=== PATIENT | female | born 1975 | race Asian ===

== ENCOUNTER → 2017-05-27 | Outpatient (CLI) | payer OTHER ==
[~2017-05-27] MED LIST: CIPR-249 PO; FLOM5CAP PO; IBUP-1114 PO; PERC5TAB12 PO
[2017-05-27 17:43] LABS: INR 0.88
[2017-05-27 17:57] LABS: MEAN CORPUSCULAR HEMOGLOBIN 30.3 pg (27.0-33.0); MEAN CORPUSCULAR VOLUME 91.7 fl (80.0-96.0); PLATELET COUNT, AUTOMATED 404 10^3/uL (150-450); RED CELL DISTRIBUTION WIDTH 12.9 % (11.5-14.5)
[2017-05-27 18:17] LABS: ANION GAP 5 MEQ/L (8-16); BLOOD UREA NITROGEN 14 MG/DL (7-18); CALCIUM LEVEL 9.2 MG/DL (8.5-10.1); CARBON DIOXIDE LEVEL 30 MEQ/L (21-32); CHLORIDE LEVEL 109 MEQ/L (98-107); CREATININE FOR GFR 0.72 MG/DL (0.55-1.02); GLOMERULAR FILTRATION RATE > 60.0 (>58); GLUCOSE, FASTING 115 MG/DL (70-105); SODIUM LEVEL 144 MEQ/L (136-145)
== END ==
LOC: M SMT 14:40
PROVIDERS: ATTEND Nurse Practitioner Family
DX: N20.1 Calculus of ureter (principal)

== ENCOUNTER 2017-05-30 07:23 | Day surgery (SDC) | payer OTHER ==
[~2017-05-30] VITALS: Ht 144.8 cm; Wt 52.2 kg
[~2017-05-30 07:23] MED LIST changes: -IBUP-1114 PO
[2017-05-30] MEDS ORDERED: CLINDAMYCIN 900 MG in APPROPRIATE DILUENT 1 EA IV ONE (07:30)
[2017-05-30] MEDS ORDERED: IBUP-1114 PO (08:11)
[2017-05-30] MEDS ORDERED: CONRAY-60 60% 50ML VIAL (Q9961) As Ordered ONE (08:35)
[2017-05-30] MEDS ORDERED: LR 1,000 ML IV ONE (08:45)
[2017-05-30 08:55] LABS: CONTROL LINE UCG INT CTR LINE PRESENT
[2017-05-30] MEDS ORDERED: fentaNYL 100 MCG/2 ML INJECTION (J3010) As Ordered ONE (09:05)
[2017-05-30] MEDS ORDERED: MIDAZOLAM INJ 2 MG/2 ML VIAL (J2250) As Ordered ONE (09:05)
[2017-05-30] MEDS ORDERED: PROPOFOL 200 MG/20 ML VIAL As Ordered ONE (09:13)
[2017-05-30] MEDS ORDERED: METOCLOPRAMIDE INJ 10MG/2ML VIAL (J2765) As Ordered ONE (09:13)
[2017-05-30] MEDS ORDERED: LIDOCAINE 2% INJ 100 MG/5 ML SDV (FOR ANES.) As Ordered ONE (09:13)
[2017-05-30] MEDS ORDERED: ONDANSETRON 4MG/2ML VIAL (J2405) As Ordered ONE (09:13)
[2017-05-30] MEDS ORDERED: PHENYLephrine HCL 500 MCG/5 ML (100MCG/ML) SYRINGE (J2370) As Ordered ONE (09:23)
[2017-05-30] MEDS ORDERED: ePHEDrine SULFATE 25 MG/5 ML(5MG/ML) SYRINGE As Ordered ONE (09:34)
--- NOTE | 2017-05-30 10:10 | RO ---
DATE OF PROCEDURE: 05/30/2017 PREPROCEDURE DIAGNOSIS: Left ureteral stone with hydronephrosis. POSTPROCEDURE DIAGNOSIS: Left ureteral stone with hydronephrosis. PROCEDURE: Cystoscopy, left ureteroscopy with laser lithotripsy and basket extraction of stones, left retrograde pyelogram with intraoperative interpretation of images, left ureteral stent placement. SURGEON: Dr. Obdulio Burciaga LOADER TECHNICIAN: None. ANESTHESIA: General. OPERATIVE INDICATIONS: This is a 41-year-old female who was found to have an obstructing 8 mm left ureteral stone. She was brought to the operating room today for treatment. DESCRIPTION OF PROCEDURE: The patient was brought to the operating room where general anesthesia was induced. Prophylactic antibiotics were infused. She was placed in dorsal lithotomy position and prepped and draped in the usual sterile fashion. A rigid cystoscope was inserted into the urethral meatus and advanced to the bladder. Once within the bladder, a guidewire was advanced up the left collecting system. I then went up the left collecting system with a short semi rigid ureteroscope and within the distal ureter an 8 mm stone was seen impacted. The stone was then fragmented in several small pieces using a 200 micro laser fiber and then all the pieces were removed with a basket. Once done, I examined the more proximal ureter and of note it was noted to be severely hydronephrotic. No additional stones were seen. A retrograde pyelogram was performed notable for severe left hydroureteronephrosis and no extravasation. At this poin, I withdrew the ureteroscope and utilized the previously placed wire to advance a 6 Macedonian x 22-32 cm JJ ureteral stent up into the left collecting system. The wire was then removed and there were adequate curls of the stent in the left renal pelvis and in the bladder. The bladder was emptied of all fluid and this marked the conclusion of the procedure. The patient was then taken out of the dorsal lithotomy position, awakened from anesthesia and transported to the recovery room in stable condition. Estimated blood loss: 0 mL. Complications: None. Specimen: Kidney stone fragments. Plan: The patient will followup in the clinic in a few weeks for stent removal. I am going to leave her stent in for at least 3-4 weeks given the amount of scarring within the distal ureter.
[2017-05-30] MEDS ORDERED: PERCOCET 5MG/325MG TAB PO PRN ×3 (10:15→10:30)
[2017-05-30] MEDS ORDERED: LR 1,000 ML IV SCH (10:15)
[2017-05-30] MEDS ORDERED: fentaNYL 100 MCG/2 ML INJECTION (J3010) IV PRN (10:15)
[2017-05-30] MEDS ORDERED: MEPERIDINE INJ 25 MG/ML VIAL (J2175) IV PRN (10:15)
[2017-05-30] MEDS ORDERED: ONDANSETRON 4MG/2ML VIAL (J2405) IV PRN (10:15)
[2017-05-30] MEDS ORDERED: METOCLOPRAMIDE INJ 10MG/2ML VIAL (J2765) IV PRN (10:15)
--- NOTE | 2017-05-30 10:19 | REP ---
C-ARM VIEWS DURING RETROGRADE PYELOGRAM AND URETERAL STENT PLACEMENT: Two C-arm views performed. Contrast partially opacified dilated left ureter and pelvicalyceal system. Left ureteral stent is placed with the proximal end coiled in the left renal pelvis and the distal end coiled in the region of the urinary bladder. 15 seconds of fluoroscopy time utilized. Signed by Elder Villalta MD 05/30/2017 12:43 P
[2017-05-30] MEDS ORDERED: oxyBUTYnin 5 MG TAB PO PRN (10:30)
[2017-05-30 11:00] VITALS: BP 116/73
== END 2017-05-30 11:29 | disposition home or self-care (01) ==
LOC: M SDC 07:23
PROVIDERS: ATTEND Urology
DX: N13.2 Hydronephrosis with renal and ureteral calculous obstruction (principal); Z88.0 Allergy status to penicillin
CPT/HCPCS: 52356; 74420; 82360; 84703; 88300; C1769; C2617

== ENCOUNTER → 2017-07-01 | Outpatient (REF) | payer OTHER ==
[~2017-07-01] MED LIST changes: +ACET1TAB17 PO; +BACT800T5 PO; +IBUP-1114 PO; +KETO10TAB PO; +OXYC1TAB23 PO
== END ==
LOC: M SMT 17:02
PROVIDERS: ATTEND Urology
DX: R50.9 Fever, unspecified (principal)

== ENCOUNTER → 2017-07-02 | Outpatient (REF) | payer OTHER | LOC: M SFHCLERA 12:36 | PROVIDERS: ATTEND Nurse Practitioner Family | DX: R50.9 Fever, unspecified (principal) ==

== ENCOUNTER 2017-07-03 20:45 | Inpatient (IN) | payer OTHER ==
[~2017-07-03] VITALS: Ht 139.7 cm; Wt 51.2 kg
[~2017-07-03 20:45] MED LIST changes: -ACET1TAB17 PO; -BACT800T5 PO; -KETO10TAB PO; -OXYC1TAB23 PO
[2017-07-03] MEDS ORDERED: KETO10TAB PO (20:55)
[2017-07-03] MEDS ORDERED: ACET1TAB17 PO (20:55)
[2017-07-03] MEDS ORDERED: ACETAMINOPHEN 325 MG TAB PO ONE (22:00)
[2017-07-03 22:26] LABS: SQUAM EPITHELIAL CELL UR AURFX 3 /HPF (0-6)
[2017-07-03] MEDS ORDERED: NS 1,000 ML IV ONE (22:30)
[2017-07-03] MEDS ORDERED: ONDANSETRON 4MG/2ML VIAL (J2405) IV ONE (22:30)
[2017-07-03] MEDS ORDERED: KETOROLAC 30 MG/ML VIAL (J1885) IV ONE (22:30)
[2017-07-03 22:53] LABS: BASO % 0.3 % (0.0-1.0); EOS % 0.3 % (0.0-3.0); IMMATURE GRANULOCYTE % 0.3 % (0-0); LYMPH % 9.1 % (24.0-44.0); MEAN CORPUSCULAR HEMOGLOBIN 29.9 pg (27.0-33.0); MEAN CORPUSCULAR HGB CONC 33.6 g/dl (32.0-36.5); MEAN CORPUSCULAR VOLUME 88.8 fl (80.0-96.0); MONO # 0.7 10^3/uL (0.0-0.8); MONO % 6.9 % (0.0-5.0); NEUTROPHILS # 8.9 10^3/uL (1.8-7.7); NEUTROPHILS % 83.1 % (36.0-66.0); PLATELET COUNT, AUTOMATED 324 10^3/uL (150-450); RED CELL DISTRIBUTION WIDTH 12.7 % (11.5-14.5); WHITE BLOOD COUNT 10.7 10^3/uL (4.0-10.0)
[2017-07-03 22:55] LABS: CONTROL LINE UCG INT CTR LINE PRESENT
[2017-07-03 23:15] LABS: ALBUMIN 3.3 GM/DL (3.2-5.2); ALBUMIN/GLOBULIN RATIO 0.75 (1.00-1.93); ALKALINE PHOSPHATASE 131 U/L (45-117); ALT/SGPT 89 U/L (12-78); ANION GAP 10 MEQ/L (8-16); AST/SGOT 40 U/L (7-37); BILIRUBIN,DIRECT 0.2 MG/DL (0.0-0.2); BILIRUBIN,TOTAL 0.6 MG/DL (0.2-1.0); BLOOD UREA NITROGEN 8 MG/DL (7-18); CALCIUM LEVEL 8.4 MG/DL (8.5-10.1); CARBON DIOXIDE LEVEL 26 MEQ/L (21-32); CHLORIDE LEVEL 103 MEQ/L (98-107); CREATININE FOR GFR 0.76 MG/DL (0.55-1.02); GLOMERULAR FILTRATION RATE > 60.0 (>58); GLUCOSE, FASTING 98 MG/DL (70-105); POTASSIUM SERUM 3.1 MEQ/L (3.5-5.1); SODIUM LEVEL 139 MEQ/L (136-145); TOTAL PROTEIN 7.7 GM/DL (6.4-8.2)
--- NOTE | 2017-07-03 23:30 | REPUSA ---
CT of the abdomen and pelvis without contrast Clinical statement: Pain. Technique: Multiple axial CT images were obtained from the base of the lungs to the floor of the pelv is utilizing 5 mm axial slices without administration of contrast. Coronal and sagittal reconstructio ns were also obtained. Comparison: 05/23/2017. Findings: Chest: The visualized lung bases are clear. Abdomen: The kidneys are normal in size bilaterally. There is mild left-sided hydronephrosis and hydr oureter. This is decrease in severity since the prior study. Tiny nonobstructing stones are seen bila terally. Increased density of the renal medullary pyramids are noted. The liver, spleen, pancreas, ga llbladder and adrenal glands are unremarkable. The aorta demonstrates normal caliber and contour. The re is no abdominal lymphadenopathy or ascites. Pelvis: The bowel is unremarkable, with no obstructive or inflammatory changes. The appendix is je l. The urinary bladder is within normal limits. There is no pelvic lymphadenopathy or ascites. The ot her pelvic structures appear unremarkable. Bones: There are no suspicious osseous abnormalities seen. Impression: 1. Mild left-sided hydronephrosis and hydroureter. The obstructing stone in the distal left ureter se en on the prior study has resolved however. Tiny nonobstructing stones are seen in the kidneys bilate rally at this time. 2. Bilateral medullary nephrocalcinosis. 3. No obstructive or inflammatory bowel changes.
[2017-07-04] MEDS: NS 1,000 ML IV SCH ×3 (00:45→20:35)
[2017-07-04] MEDS ORDERED: MORPHINE 4 MG/ML 1ML SYRINGE IV ONE (00:45)
[2017-07-04] MEDS ORDERED: CIPR-249 PO (00:55)
[2017-07-04] MEDS ORDERED: OXYC1TAB23 PO (00:55)
[2017-07-04] MEDS ORDERED: ONDANSETRON 4MG/2ML VIAL (J2405) IV PRN (01:00)
[2017-07-04] MEDS ORDERED: MORPHINE 2 MG/ML 1ML SYRINGE IV PRN (01:00)
[2017-07-04] MEDS ORDERED: ACETAMINOPHEN TAB 650MG DOSE (2X325MG) PO PRN (01:00)
--- NOTE | 2017-07-04 01:03 | SMCUROLCON ---
Urology Consultation General Date of Consultation 07/04/17 Reason For Consultation This patient is seen for fevers to 103 and flank pain. History of Present Illness The patient is a [41]-year-old [female] with a past medical history for [recent treatment for kidney stone with stenting and stent removal 1 week ago. She has had pain since the stent has come out and started to have fever yesterday. Went to urgent care where eval of urine was negative. She has been on cipro. Despite that she has had fevers >101 and flank pain. The pain is on the left side. Ct scan reviewed and negative for hydro on the left. Has an upper pole stone on the right, no hydro]. Past Medical History Medical History as above Surgical Hstory as above Family History Family History Non contributory Social History Social History non contributory Alcohol: Denies Drugs: denies Medications Current Medications Current Medications Acetaminophen (Tylenol Tab) 650 mg Q4HP PRN PO MILD PAIN OR FEVER; Start 07/04 at 01:00; Stop 08/03/17 at 00:59; Status UNV Ceftriaxone Sodium 1 gm/IV Miscellaneous Supplies 10 ml @ 20 mls/hr Q24H IV ; Start 07/04/17 at 01:00; Stop 07/11/17 at 00:59; Status UNV Heparin Sodium (Porcine) (Heparin) 5,000 units Q8H SC ; Start 07/04/17 at 01:00 ; Stop 07/09/17 at 00:59; Status UNV Morphine Sulfate (Morphine Sulfate Inj) 2 mg Q2HP PRN IV SEVERE PAIN (PS 8-10) ; Start 07/04/17 at 01:00; Stop 07/11/17 at 00:59; Status UNV Ondansetron HCl (ZOFRAN INJection) 4 mg Q6HP PRN IV NAUSEA OR VOMITING; Start 07/04/17 at 01:00; Stop 08/03/17 at 00:59; Status UNV Oxycodone/ Acetaminophen (Percocet 5mg/ 325mg Tablet) 1 tab Q4HP PRN PO MODERATE PAIN (PS 5-7); Start 07/04/17 at 01:00; Stop 07/11/17 at 00:59; Status UNV Sodium Chloride 1,000 ml @ 100 mls/hr Q10H IV ; Start 07/04/17 at 00:47; Stop 08/03/17 at 00:46; Status UNV Allergies Allergies: Coded Allergies: Penicillins (Verified Allergy, Intermediate, lip swelling, 07/03/17) Review of Systems General: Reports: Normal Appetite, Denies: ROS Unobtainable, Chills, Night Sweats, Fatigue, Malaise, Other Symptoms Constitutional: Reports: Fever Eyes: Denies: Pain, Vision change, Conjunctivae inflammation, Eyelid inflammation, Redness, Other ENT: Denies: Head Aches, Ear Pain, Dysphagia, Sinus Congestion, Post Nasal Drip , Sore Throat, Epistaxis, Other Symptoms Skin: Denies: Rash, Lesions, Jaundice, Bruising, Itching, Dry, Breakdown, Nail Changes, Other Pulmonary: Denies: Dyspnea, Cough, Pleuritic Chest Pain, Other Symptoms Gastrointestinal: Denies: Nausea, Vomiting, Abdominal Pain, Diarrhea, Constipation, Melena, Hematochezia, Other Symptoms Genitourinary: Denies: Dysuria, Frequency, Incontinence, Hematuria, Retention, Other Symptoms Physical Examination General Exam: Cooperative EYE EXAM: No: PERRLA, Conjunctiva & lids normal, EOMI, Sclera icteric, Ptosis, Other Eye Symptoms Chest Exam: No: Clear to auscultation, Normal air movement, Rales, Rhonchi, Wheezing, Diminished, Other Abdomen Exam: No: Normal Bowel Sounds, BS Hyperactive, BS Hypoactive, Soft, Tenderness, Hepatospenomegaly, Mass, Hernia, Other Extremity Exam: No: Clubbing, Cyanosis, Edema, Normal Pulses, Tenderness, Swelling, Other Skin Exam: No: Nl turgor and temperature, Rash, Breakdown, Lesion, Pruritus, Other skin issue Neuro Exam: No: Normal Gait, Normal Speech, Strength at 5/5 X4 ext, Normal Tone , Sensation Intact, Cranial Nerves 3-12 NL, Reflexes 2+, Other Vital Signs/I&O Vital Signs Date Time Temp Pulse Resp B/P (MAP) Pulse Ox O2 Delivery O2 Flow Rate FiO2 07/04/17 00:32 99.3 99 16 120/72 (88) 99 07/03/17 22:50 Room Air Laboratory Data 24H Labs Laboratory Tests 2 07/03/17 21:55: Urine Color YELLOW, Urine Appearance CLEAR, Urine pH 8.0, Urine Specific [place] 1.010, Urine Protein NEGATIVE, Urine Glucose (UA) NEGATIVE, Urine Ketones 1+H, Urine Blood 2+H, Urine Nitrite NEGATIVE, Urine Bilirubin NEGATIVE, Urine Urobilinogen 0.2, Urine Leukocyte Esterase NEGATIVE, Urine WBC (Auto) 3, Urine RBC (Auto) 26H, Urine Hyaline Casts (Auto) 0, Urine Bacteria (Auto) 1+H, Urine Squamous Epithelial Cells 3, Urine Sperm (Auto) 07/03/17 22:41: Immature Granulocyte % (Auto) 0.3H, White Blood Count 10.7H, Red Blood Count 4.02, Hemoglobin 12.0, Hematocrit 35.7L, Mean Corpuscular Volume 88.8, Mean Corpuscular Hemoglobin 29.9, Mean Corpuscular Hemoglobin Concent 33.6, Red Cell Distribution Width 12.7, Platelet Count 324, Neutrophils (%) (Auto) 83.1H, Lymphocytes (%) (Auto) 9.1L, Monocytes (%) (Auto) 6.9H, Eosinophils (%) (Auto) 0.3, Basophils (%) (Auto) 0.3, Neutrophils # (Auto) 8.9H, Lymphocytes # (Auto) 1.0L, Monocytes # (Auto) 0.7, Eosinophils # (Auto) 0.0, Basophils # (Auto) 0.0, Immature Granulocyte # (Auto) 0.0, Nucleated Red Blood Cells % (auto) 0.0, Urine Test NEGATIVE, Anion Gap 10, Glomerular Filtration Rate > 60.0, Lactic Acid Level 1.1, Calcium Level 8.4L, Aspartate Amino Transf (AST/SGOT) 40H , Alanine Aminotransferase (ALT/SGPT) 89H, Alkaline Phosphatase 131H, Total Bilirubin 0.6, Direct Bilirubin 0.2, Total Protein 7.7, Albumin 3.3, Albumin/ Globulin Ratio 0.75L CBC/BMP Laboratory Tests 07/03/17 22:41 Red Blood Count 4.02, Mean Corpuscular Volume 88.8, Mean Corpuscular Hemoglobin 29.9, Mean Corpuscular Hemoglobin Concent 33.6, Red Cell Distribution Width 12.7 , Neutrophils (%) (Auto) 83.1 H, Lymphocytes (%) (Auto) 9.1 L, Monocytes (%) ( Auto) 6.9 H, Eosinophils (%) (Auto) 0.3, Basophils (%) (Auto) 0.3, Neutrophils # (Auto) 8.9 H, Lymphocytes # (Auto) 1.0 L, Monocytes # (Auto) 0.7, Eosinophils # (Auto) 0.0, Basophils # (Auto) 0.0 Microbiology Microbiology 07/04/17 Blood Culture, Received Pending 07/03/17 Blood Culture, Received Pending 07/03/17 Urine Culture, Received Pending Assessment fevers, flank pain left, right non obstructed stone upper pole, history of ureteral stent Plan Admit for IV fluid and IV abx. No need for urgent stenting at present. Will follow Time Spent on Consult: Time Spent / Consult (Minutes): 45 NELDA MAX MD Jul 04, 2017 01:03
[2017-07-04 01:30] VITALS: BP 128/73
[2017-07-04] MEDS: CEFTRIAXONE SOD 1 GM in APPROPRIATE DILUENT 1 EA IV SCH (02:40)
[2017-07-04] MEDS: PERCOCET 5MG/325MG TAB PO PRN ×2 (02:44→14:13)
[2017-07-04] MEDS: HEPARIN SOD (PORCINE) 5000 UNITS/ML VIAL SC SCH ×3 (06:21→21:46)
[2017-07-04 06:56] LABS: BASO % 0.3 % (0.0-1.0); EOS # 0.1 10^3/uL (0.0-0.50); EOS % 1.3 % (0.0-3.0); IMMATURE GRANULOCYTE % 0.3 % (0-0); LYMPH # 2.1 10^3/uL (1.5-4.5); LYMPH % 28.4 % (24.0-44.0); MEAN CORPUSCULAR HEMOGLOBIN 29.3 pg (27.0-33.0); MEAN CORPUSCULAR HGB CONC 32.8 g/dl (32.0-36.5); MEAN CORPUSCULAR VOLUME 89.2 fl (80.0-96.0); MONO % 13.5 % (0.0-5.0); NEUTROPHILS # 4.2 10^3/uL (1.8-7.7); NEUTROPHILS % 56.2 % (36.0-66.0); PLATELET COUNT, AUTOMATED 276 10^3/uL (150-450); RED CELL DISTRIBUTION WIDTH 12.8 % (11.5-14.5); WHITE BLOOD COUNT 7.5 10^3/uL (4.0-10.0)
--- NOTE | 2017-07-04 07:05 | HPE ---
DATE OF ADMISSION: 07/04/2017 PRIMARY CARE PROVIDER: None. UROLOGIST: Dr. Burciaga. ATTENDING PHYSICIAN: Dr. Mcmillan. CHIEF COMPLAINT: Fever and persistent left flank pain. HISTORY OF PRESENT ILLNESS: The patient is a 41-year-old female without significant past medical history who presented to the emergency room (ER) for fever and persistent left flank pain. The history is provided by herself. She states back to 05/28/2017 she developed sudden onset of left flank pain and she went to the urgent care and then she was referred here in the ER and a CT scan demonstrated she had some obstructed ureteral stone in the left side. She was consulted with the urologist and the stone was removed and a left ureteral stent was inserted. She followed with urology in the office back to 06/28/2017 and the stent was removed. She was given one dose Cipro for infection prophylaxis. She was told to contact the doctor's office she had fever or pain. Subsequent to this, she was fine; however, starting from 06/30/2017, she developed fever and pain again. The highest temperature was 105. Her pain is located in the left flank, which was persistent. The worst pain is about an 8 over 10. She went back to see the urologist who prescribed oral Cipro for possible urinary tract infection. Due to persistent fever and pain, she decided to come to the ER for further evaluation. In the ER, she underwent a CT of abdomen and pelvis again, which demonstrated the previous left renal stone was gone, but she has mild hydronephrosis and hydroureter in the left side and also no obstructive kidney stone. The urologist was consulted in the ER. The medicine service was called for admission. REVIEW OF SYSTEMS: Positive fever. Positive chills. No blurred vision. No shortness of breath. No chest pain. No nausea. No vomiting. No abdominal pain, but left flank pain. No dysuria. No diarrhea. No tingling, numbness or weakness in arms or lower extremities. All other systems reviewed were negative. PAST MEDICAL HISTORY: Recent left distal ureter stone. PAST SURGICAL HISTORY: Ureteral stone removal plus left ureteral stenting. ALLERGIES: No known drug allergies. SOCIAL HISTORY: No tobacco use. No alcohol abuse. No illicit drug abuse. She is . She is full code. FAMILY HISTORY: No history of kidney stones, coronary artery disease or diabetes in the family. MEDICATIONS: Reviewed. PHYSICAL EXAMINATION: Temperature 102.2. Heart rate 116. Respiratory rate 16. Blood pressure 140/87. Oxygen saturation 100% in room air. GENERAL: She is awak, alert and oriented times three. She is in no acute distress. HEENT: Atraumatic. Pupils equal round and react to light. No jaundice. Extraocular muscles intact. Ears, nose and throat normal. Moist mucus, not dry. NECK: No jugular venous distention (JVD). No bruits. LUNGS: Clear. No wheezing. No crackles. HEART: S1, S2, regular. No murmur. ABDOMEN: Soft. Bowel sounds positive. Nontender. LOWER EXTREMITIES: No edema in bilateral lower extremities. SKIN: No rash. NEUROLOGIC: Nonfocal. PSYCHOLOGIC: No acute psychosis. DIAGNOSTICS AND LABS: CBC and differential with WBC 10.7, hemoglobin/hematocrit (H/H) 12/36, and platelets of 324. Sodium 139, potassium 3.2, BUN 8, creatinine 0.7, glucose 98. CT of abdomen and pelvis reviewed. IMPRESSIONS: 1. Sepsis and possible urinary tract infection. 2. Bilateral non obstructing kidney stones. 3. Hypokalemia. PLAN: The patient will be admitted to medical-surgical floor. Will treat her with IV ceftriaxone for possible urinary tract infection. Urology will be consulted. On her urine culture from urgent care on 07/02/2017, there is no bacterial growth. We need to follow repeat blood culture and urine cultures. [facility] MEDICAL CENTERJuliane
[2017-07-04 07:32] LABS: ALBUMIN 2.6 GM/DL (3.2-5.2); ALBUMIN/GLOBULIN RATIO 0.81 (1.00-1.93); ALKALINE PHOSPHATASE 114 U/L (45-117); ALT/SGPT 66 U/L (12-78); ANION GAP 9 MEQ/L (8-16); AST/SGOT 26 U/L (7-37); BILIRUBIN,TOTAL 0.3 MG/DL (0.2-1.0); BLOOD UREA NITROGEN 10 MG/DL (7-18); CALCIUM LEVEL 7.6 MG/DL (8.5-10.1); CARBON DIOXIDE LEVEL 26 MEQ/L (21-32); CHLORIDE LEVEL 111 MEQ/L (98-107); CREATININE FOR GFR 0.53 MG/DL (0.55-1.02); GLOMERULAR FILTRATION RATE > 60.0 (>58); GLUCOSE, FASTING 97 MG/DL (70-105); POTASSIUM SERUM 3.1 MEQ/L (3.5-5.1); SODIUM LEVEL 146 MEQ/L (136-145); TOTAL PROTEIN 5.8 GM/DL (6.4-8.2)
[2017-07-04] MEDS ORDERED: POTASSIUM CHLORIDE 10 MEQ SR TABLET PO ONE (09:00)
[2017-07-04 09:30] VITALS: BP 126/84
[2017-07-04] MEDS ORDERED: MOM 30ML SUSPENSION UDC PO PRN (13:00)
[2017-07-04] MEDS ORDERED: SENOKOT S TAB PO PRN (13:00)
--- NOTE | 2017-07-04 13:12 | IPNPDOC ---
Assessment/Plan Date Seen The patient was seen on 07/04/17. Patient Summary This is a 41 y/o who is s/p cystoscopy, left ureteroscopy with laser lithotripsy and basket extraction for an impacted stone on 05/30/17 and then stent removal on 06/28/17, admitted to the hospital w/ fevers and flank pain. CT yesterday showed mild left hydroureteronephrosis. This is common due to ureteral edema after stent removal. Her flank pain and fevers are better at this time. Plan/VTE VTE Prophylaxis Ordered?: Yes Plan - continue broad spectrum antibiotics and adjust based on culture results - no urologic intervention required as hydro is mild and patient's pain is improving - if flank pain worsens would recommend repeat US in a day or so to assess for worsening hydronephrosis Subjective Review oF Systems Chief Complaint The patient is a 41-year-old female admitted with a reason for visit of Sepsis, Uti. Events since Last Encounter Patient notes that her flank pain and headache are better this morning. No fevers since admitted to the hospital. Objective Physical Examination General Exam: Alert, Cooperative, No Acute Distress ABDOMEN EXAM: Soft Skin Exam: Nl turgor and temperature Neuro Exam: Normal Speech Psych Exam: Mental status NL, Mood NL Vital Signs/I&O Vital Signs Date Time Temp Pulse Resp B/P (MAP) Pulse Ox O2 Delivery O2 Flow Rate FiO2 07/04/17 09:30 99.0 94 16 126/84 (98) 99 Room Air I&O- Last 24 Hours up to 6 AM 07/05/17 06:00 Intake Total 580 ml Output Total 400 ml Balance 180 ml Laboratory Data Labs 24H Laboratory Tests 2 07/03/17 21:55: Urine Color YELLOW, Urine Appearance CLEAR, Urine pH 8.0, Urine Specific [place] 1.010, Urine Protein NEGATIVE, Urine Glucose (UA) NEGATIVE, Urine Ketones 1+H, Urine Blood 2+H, Urine Nitrite NEGATIVE, Urine Bilirubin NEGATIVE, Urine Urobilinogen 0.2, Urine Leukocyte Esterase NEGATIVE, Urine WBC (Auto) 3, Urine RBC (Auto) 26H, Urine Hyaline Casts (Auto) 0, Urine Bacteria (Auto) 1+H, Urine Squamous Epithelial Cells 3, Urine Sperm (Auto) 07/03/17 22:41: Immature Granulocyte % (Auto) 0.3H, White Blood Count 10.7H, Red Blood Count 4.02, Hemoglobin 12.0, Hematocrit 35.7L, Mean Corpuscular Volume 88.8, Mean Corpuscular Hemoglobin 29.9, Mean Corpuscular Hemoglobin Concent 33.6, Red Cell Distribution Width 12.7, Platelet Count 324, Neutrophils (%) (Auto) 83.1H, Lymphocytes (%) (Auto) 9.1L, Monocytes (%) (Auto) 6.9H, Eosinophils (%) (Auto) 0.3, Basophils (%) (Auto) 0.3, Neutrophils # (Auto) 8.9H, Lymphocytes # (Auto) 1.0L, Monocytes # (Auto) 0.7, Eosinophils # (Auto) 0.0, Basophils # (Auto) 0.0, Immature Granulocyte # (Auto) 0.0, Nucleated Red Blood Cells % (auto) 0.0, Urine Test NEGATIVE, Anion Gap 10, Glomerular Filtration Rate > 60.0, Lactic Acid Level 1.1, Calcium Level 8.4L, Aspartate Amino Transf (AST/SGOT) 40H , Alanine Aminotransferase (ALT/SGPT) 89H, Alkaline Phosphatase 131H, Total Bilirubin 0.6, Direct Bilirubin 0.2, Total Protein 7.7, Albumin 3.3, Albumin/ Globulin Ratio 0.75L 07/04/17 06:32: Immature Granulocyte % (Auto) 0.3H, White Blood Count 7.5, Red Blood Count 3.69L , Hemoglobin 10.8L, Hematocrit 32.9L, Mean Corpuscular Volume 89.2, Mean Corpuscular Hemoglobin 29.3, Mean Corpuscular Hemoglobin Concent 32.8, Red Cell Distribution Width 12.8, Platelet Count 276, Neutrophils (%) (Auto) 56.2, Lymphocytes (%) (Auto) 28.4, Monocytes (%) (Auto) 13.5H, Eosinophils (%) (Auto) 1.3, Basophils (%) (Auto) 0.3, Neutrophils # (Auto) 4.2, Lymphocytes # (Auto) 2.1, Monocytes # (Auto) 1.0H, Eosinophils # (Auto) 0.1, Basophils # (Auto) 0.0, Immature Granulocyte # (Auto) 0.0, Nucleated Red Blood Cells % (auto) 0.0, Anion Gap 9, Glomerular Filtration Rate > 60.0, Calcium Level 7.6L, Aspartate Amino Transf (AST/SGOT) 26, Alanine Aminotransferase (ALT/SGPT) 66, Alkaline Phosphatase 114, Total Bilirubin 0.3, Total Protein 5.8#L, Albumin 2.6#L, Albumin/Globulin Ratio 0.81L, Blood Urea Nitrogen 10, Creatinine 0.53L, Sodium Level 146#H, Potassium Level 3.1L, Chloride Level 111H, Carbon Dioxide Level 26 , Magnesium Level 2.1 CBC/BMP Laboratory Tests 07/03/17 22:41 Red Blood Count 4.02, Mean Corpuscular Volume 88.8, Mean Corpuscular Hemoglobin 29.9, Mean Corpuscular Hemoglobin Concent 33.6, Red Cell Distribution Width 12.7 , Neutrophils (%) (Auto) 83.1 H, Lymphocytes (%) (Auto) 9.1 L, Monocytes (%) ( Auto) 6.9 H, Eosinophils (%) (Auto) 0.3, Basophils (%) (Auto) 0.3, Neutrophils # (Auto) 8.9 H, Lymphocytes # (Auto) 1.0 L, Monocytes # (Auto) 0.7, Eosinophils # (Auto) 0.0, Basophils # (Auto) 0.0 07/04/17 06:32 Red Blood Count 3.69 L, Mean Corpuscular Volume 89.2, Mean Corpuscular Hemoglobin 29.3, Mean Corpuscular Hemoglobin Concent 32.8, Red Cell Distribution Width 12.8, Neutrophils (%) (Auto) 56.2, Lymphocytes (%) (Auto) 28.4, Monocytes (%) (Auto) 13.5 H, Eosinophils (%) (Auto) 1.3, Basophils (%) ( Auto) 0.3, Neutrophils # (Auto) 4.2, Lymphocytes # (Auto) 2.1, Monocytes # (Auto ) 1.0 H, Eosinophils # (Auto) 0.1, Basophils # (Auto) 0.0, Calcium Level 7.6 L, Aspartate Amino Transf (AST/SGOT) 26, Alanine Aminotransferase (ALT/SGPT) 66, Alkaline Phosphatase 114, Total Bilirubin 0.3, Total Protein 5.8 #L, Albumin 2.6 #L Microbiology Microbiology 07/04/17 Blood Culture, Received Pending 07/03/17 Blood Culture, Received Pending 07/03/17 Urine Culture, Received Pending STEPHANIA VELASQUEZ MD Jul 04, 2017 13:12
[2017-07-04] MEDS: FIORICET TAB PO PRN (14:12)
[2017-07-04 16:15] VITALS: BP 116/67
[2017-07-04 20:00] VITALS: BP 144/76
[2017-07-05] VITALS: BP 165/83
[2017-07-05] MEDS: CEFTRIAXONE SOD 1 GM in APPROPRIATE DILUENT 1 EA IV SCH (00:42)
[2017-07-05] MEDS: HEPARIN SOD (PORCINE) 5000 UNITS/ML VIAL SC SCH ×3 (05:33→21:17)
[2017-07-05] MEDS: NS 1,000 ML IV SCH ×2 (05:33→17:40)
[2017-07-05 07:07] LABS: MEAN CORPUSCULAR HEMOGLOBIN 29.5 pg (27.0-33.0); MEAN CORPUSCULAR HGB CONC 33.2 g/dl (32.0-36.5); MEAN CORPUSCULAR VOLUME 88.8 fl (80.0-96.0); PLATELET COUNT, AUTOMATED 312 10^3/uL (150-450); RED CELL DISTRIBUTION WIDTH 12.9 % (11.5-14.5); WHITE BLOOD COUNT 7.1 10^3/uL (4.0-10.0)
[2017-07-05 07:27] LABS: ALBUMIN 2.5 GM/DL (3.2-5.2); ALBUMIN/GLOBULIN RATIO 0.66 (1.00-1.93); ALKALINE PHOSPHATASE 147 U/L (45-117); ALT/SGPT 82 U/L (12-78); ANION GAP 10 MEQ/L (8-16); AST/SGOT 44 U/L (7-37); BILIRUBIN,TOTAL 0.4 MG/DL (0.2-1.0); BLOOD UREA NITROGEN 4 MG/DL (7-18); CALCIUM LEVEL 7.8 MG/DL (8.5-10.1); CARBON DIOXIDE LEVEL 24 MEQ/L (21-32); CHLORIDE LEVEL 110 MEQ/L (98-107); CREATININE FOR GFR 0.47 MG/DL (0.55-1.02); GLOMERULAR FILTRATION RATE > 60.0 (>58); GLUCOSE, FASTING 82 MG/DL (70-105); POTASSIUM SERUM 3.2 MEQ/L (3.5-5.1); SODIUM LEVEL 144 MEQ/L (136-145); TOTAL PROTEIN 6.3 GM/DL (6.4-8.2)
[2017-07-05 08:00] VITALS: BP 146/91
[2017-07-05] MEDS: FIORICET TAB PO PRN ×2 (08:00→20:09)
[2017-07-05 08:15] VITALS: BP 126/70
[2017-07-05 08:17] LABS: MAGNESIUM LEVEL 1.9 MG/DL (1.8-2.4)
[2017-07-05] MEDS ORDERED: POTASSIUM CHLORIDE 10 MEQ SR TABLET PO ONE (08:30)
[2017-07-05] MEDS ORDERED: MAG SULF 1GM/100ML (MAG RUN) 1 GM in APPROPRIATE DILUENT 1 EA IV ONE (09:15)
--- NOTE | 2017-07-05 09:43 | IPN ---
DATE OF EXAMINATION: 07/05/2017 SUBJECTIVE: The patient tells me that overnight, she had a fever, and she had left-sided flank pain associated with it but no dysuria, and it did resolve. She did receive one dose of intravenous (IV) morphine. She otherwise tells me that she is feeling better. Her headache is improving. She did have a bowel movement. OBJECTIVE: VITAL SIGNS: Temperature max 101.6, temperature 98.9. Pulse 74. Respiratory rate 18. Blood pressure (BP) 146/91. Oxygen (O2) saturation 99% on room air. GENERAL: She is a pleasant middle-aged female, sitting up in bed, eating breakfast. She does not appear to be in any acute distress. HEENT: No elevation in central venous pressure (CVP). She has moist mucous membranes. Cranial nerve II-XII are grossly intact. CARDIOVASCULAR EXAMINATION: S1, S2, regular. RESPIRATORY EXAMINATION: Is clear. She has no costovertebral angle (CVA) tenderness bilaterally. ABDOMINAL EXAMINATION: Is fairly benign. EXTREMITIES: There is no clubbing, cyanosis, or edema. LABORATORY STUDIES: WBC 7.1 down from 10.7, hemoglobin 10.3, platelet count 312. Chemistry panel: Sodium 144, potassium 3.2 repleted, chloride 110, bicarbonate 24, BUN 4, creatinine 0.4, AST and ALT are slightly elevated at 44 and 82 respectively, with an alkaline phosphatase elevated at 147. MICROBIOLOGY: Urine culture is pending. Blood cultures are negative thus far. CT scan of the abdomen and pelvis on 07/03/2017 revealed mild left-sided hydronephrosis and hydroureter with the obstructing stone in the distal left ureter seem previously had resolved. Tiny nonobstructing stones were seen in the kidneys bilaterally. Bilateral medullary nephrocalcinosis. No obstructive or inflammatory bowel changes. ASSESSMENT AND PLAN: This is a 41-year-old female with what appears to be pyelonephritis. PROBLEMS: 1. Pyelonephritis. Urology's help has been greatly appreciated. She has been seen by Dr. Burciaga, who is advising to continue with the antibiotics. She is currently on ceftriaxone. Will followup her cultures. There is no obstructing stone. Her flank pain is intermittent and does appear to be improving. Her fever curve is downtrending, although she did have a fever of 101. It was significantly less than 102, which she presented with. She is hemodynamically stable. For the time being, will continue with her current management and to complete a 14-day course. 2. Abnormal liver function test. The etiology remains unclear. May require an ultrasound, as well as a hepatitis panel and an antinuclear antibody (MICHELET). The patient does not have significant past medical history. 3. Anemia. She did have an usual drop in all of her , however. It was unusual for a 41-year-old female to have anemia to this degree, although is asymptomatic. I will evaluate with a peripheral smear and iron studies. 4. Hypokalemia, repleted. 5. Migraine headaches. She is improving with Fioricet. 6. Deep venous thrombosis (DVT) prophylaxis. She is on heparin. DISPOSITION: Pending her clinical improvement, followup urine culture, and resolution of her fever.
[2017-07-05 09:51] LABS: RETIC HEMOGLOBIN EQUIVALENT 28.1 pg (24-36); RETICULOCYTE % 0.8 % (0.5-1.5)
[2017-07-05 09:52] LABS: REASON FOR REVIEW COMPREHENSIVE REVIEW
[2017-07-05 10:02] LABS: FERRITIN 144 NG/ML (8-252); PERCENT SATURATION 41.9 % (13.2-45.0); TOTAL IRON BINDING CAPACITY 203 UG/DL (250-450)
[2017-07-05 10:20] LABS: INR 0.96
[2017-07-05 20:00] VITALS: BP 132/74
[2017-07-06] VITALS: BP 115/78
[2017-07-06] MEDS: CEFTRIAXONE SOD 1 GM in APPROPRIATE DILUENT 1 EA IV SCH (00:32)
[2017-07-06] MEDS: FIORICET TAB PO PRN ×2 (06:03→17:43)
[2017-07-06] MEDS: NS 1,000 ML IV SCH ×2 (06:03→14:41)
[2017-07-06] MEDS: HEPARIN SOD (PORCINE) 5000 UNITS/ML VIAL SC SCH ×3 (06:04→22:00)
[2017-07-06 07:17] LABS: MEAN CORPUSCULAR HEMOGLOBIN 29.6 pg (27.0-33.0); MEAN CORPUSCULAR HGB CONC 33.9 g/dl (32.0-36.5); MEAN CORPUSCULAR VOLUME 87.4 fl (80.0-96.0); PLATELET COUNT, AUTOMATED 362 10^3/uL (150-450); RED CELL DISTRIBUTION WIDTH 12.6 % (11.5-14.5); WHITE BLOOD COUNT 6.2 10^3/uL (4.0-10.0)
[2017-07-06 07:34] LABS: ALBUMIN 2.6 GM/DL (3.2-5.2); ALBUMIN/GLOBULIN RATIO 0.65 (1.00-1.93); ALKALINE PHOSPHATASE 153 U/L (45-117); ALT/SGPT 69 U/L (12-78); ANION GAP 9 MEQ/L (8-16); AST/SGOT 27 U/L (7-37); BILIRUBIN,TOTAL 0.2 MG/DL (0.2-1.0); BLOOD UREA NITROGEN 7 MG/DL (7-18); CALCIUM LEVEL 8.1 MG/DL (8.5-10.1); CARBON DIOXIDE LEVEL 24 MEQ/L (21-32); CHLORIDE LEVEL 110 MEQ/L (98-107); CREATININE FOR GFR 0.46 MG/DL (0.55-1.02); GLOMERULAR FILTRATION RATE > 60.0 (>58); GLUCOSE, FASTING 85 MG/DL (70-105); POTASSIUM SERUM 3.6 MEQ/L (3.5-5.1); SODIUM LEVEL 143 MEQ/L (136-145); TOTAL PROTEIN 6.6 GM/DL (6.4-8.2)
[2017-07-06 08:00] VITALS: BP 108/60
[2017-07-06] MEDS ORDERED: INFLUENZA QUADRIVALENT PF VACCINE 0.5ML SYRINGE (90686) IM ONE (09:00)
[2017-07-06] MEDS ORDERED: ACETAMINOPHEN TAB 650MG DOSE (2X325MG) PO PRN (09:00)
--- NOTE | 2017-07-06 14:41 | REP ---
COMPLETE ABDOMINAL ULTRASOUND: 07/05/2017 CLINICAL HISTORY: Hepatitis. Comparison CT abdomen pelvis without contrast 07/03/2017. FINDINGS: Sonographic evaluation of the abdomen shows the liver homogeneous in echotexture. There is no focal hepatic mass, intrahepatic biliary dilatation nor perihepatic ascites. Gallbladder is partially filled. There are multiple polypoid filling defects. The largest 5 x 5 x 3 mm and wall thickening is up to 2.5 mm. I see no pericholecystic fluid. There is no mobile or shadowing stones. Common duct is 5.8 mm without a filling defect. Pancreas is partially obscured with the pancreatic head obscured by gas in bowel. Remainder of visualized pancreas intact. The spleen measures 8.7 cm in length and is without a focal lesion. There is no adjacent ascites. The right kidney 10.3 x 4.9 x 4. 3 cm and the left kidney 11.6 x 4.7 x 5.3 cm. There is mild pelviectasis bilaterally and bilateral echogenic foci in the pyramids consistent with medullary sponge kidney. Normal aorta has a maximum AP diameter 1.7 cm proximally below the diaphragm with 1.3 cm AP diameter at the level of the renal arteries and 1.3 cm at the bifurcation. The common iliac arteries 8.4 mm right and 8.5 mm left, normal. The bladder grossly intact 12.4 x 9 x 5.9 cm, volume calculated 430 mL IMPRESSION: 1. Liver, visualized portion of pancreas, spleen and common duct grossly intact. 2. Gallbladder with slightly thickened wall with multiple polyps which are not mobile largest 5 x 5 x 3 mm. No calcified shadowing stone evident. 3. Mild pelviectasis both kidneys with normal renal size and with echogenic pyramids on both sides as on CT representing medullary sponge kidney. 4. Bladder with maximum volume of 430 mL. Signed by Kt Quinonez MD 07/06/2017 05:24 P
[2017-07-06 16:00] VITALS: BP 141/85
--- NOTE | 2017-07-06 16:24 | IPNPDOC ---
Date Seen The patient was seen on 07/06/17. Progress Note SUBJECTIVE: Seen at bedside, resting comfortably without complaint. Denies: f/c/r, n/v/d, CP, or abdominal pain. last night had some back pain and recorded low grade temp OBJECTIVE: VITAL SIGNS: see below GENERAL: NAD, A&OX3, pleasant HEENT: PERRLA, throat clear, neck supple no JVD CARDIOVASCULAR EXAMINATION: RRR RESPIRATORY EXAMINATION: CTA Bilaterally BACK: no CVA Tenderness ABDOMEN: soft, NT/ND, normoactive bowel sounds, no rebound tenderness EXTREMITIES: no edema, no calf tenderness. LABORATORY STUDIES: see below MICROBIOLOGY: Urine culture is pending. Blood cultures are negative thus far. ASSESSMENT AND PLAN: This is a 41-year-old female being treated for pyelonephritis, she had a low grade fever last night. PROBLEMS: 1. Pyelonephritis. Hemodynamically stable without signs of sepsis. However, she had a fever last night and I'd like to watch her one more night. Continue current antibiotics, will need to complete 14 days. 2. Abnormal liver function test. The etiology remains unclear. Liver U/S: 1. Liver, visualized portion of pancreas, spleen and common duct grossly intact. 2. Gallbladder with slightly thickened wall with multiple polyps which are not mobile largest 5 x 5 x 3 mm. No calcified shadowing stone evident. 3. Mild pelviectasis both kidneys with normal renal size and with echogenic pyramids on both sides as on CT representing medullary sponge kidney. Hepatitis panel and an antinuclear antibody (MICHELET) are negative. The patient does not have significant past medical history, and doesn't demonstrate an acute need for surgical evaluation. Likely can follow up regarding her GB as outpatient. 3. Anemia. Likely hemodilutional. Recheck CBC in morning. 4. Hypokalemia, repleted. 5. Migraine headaches. Improved. 6. Deep venous thrombosis (DVT) prophylaxis. She is on heparin. DISPOSITION: Likely discharge home tomorrow. VS, I&O, 24H, Fishbone Vital Signs/I&O Vital Signs Date Time Temp Pulse Resp B/P (MAP) Pulse Ox O2 Delivery O2 Flow Rate FiO2 07/06/17 08:00 98.5 70 16 108/60 (76) 99 Room Air I&O- Last 24 Hours up to 6 AM 07/06/17 06:00 Intake Total 940 ml Output Total 3850 ml Balance -2910 ml Laboratory Data 24H LABS Laboratory Tests 2 07/06/17 06:46: Nucleated Red Blood Cells % (auto) 0.0, Anion Gap 9, Glomerular Filtration Rate > 60.0, Blood Urea Nitrogen 7#, Creatinine 0.46L, Sodium Level 143, Potassium Level 3.6, Chloride Level 110H, Carbon Dioxide Level 24, Calcium Level 8.1L, Aspartate Amino Transf (AST/SGOT) 27, Alanine Aminotransferase (ALT/SGPT) 69, Alkaline Phosphatase 153H, Total Bilirubin 0.2, Total Protein 6.6, Albumin 2.6L , Albumin/Globulin Ratio 0.65L CBC/BMP Laboratory Tests 07/06/17 06:46 Red Blood Count 3.58 L, Mean Corpuscular Volume 87.4, Mean Corpuscular Hemoglobin 29.6, Mean Corpuscular Hemoglobin Concent 33.9, Red Cell Distribution Width 12.6, Calcium Level 8.1 L, Aspartate Amino Transf (AST/SGOT) 27, Alanine Aminotransferase (ALT/SGPT) 69, Alkaline Phosphatase 153 H, Total Bilirubin 0.2, Total Protein 6.6, Albumin 2.6 L Microbiology Microbiology 07/04/17 Blood Culture - Preliminary, Resulted No Growth after 48 hours. All Specime... 07/03/17 Blood Culture - Preliminary, Resulted No Growth after 48 hours. All Specime... 07/05/17 Stool Occult Blood ([facility]) - Final, Complete 07/03/17 Urine Culture - Final, Complete JUAN COURTNEY DO Jul 06, 2017 16:24
[2017-07-06 20:00] VITALS: BP 137/96
[2017-07-06] MEDS: PERCOCET 5MG/325MG TAB PO PRN (21:47)
[2017-07-07] VITALS: BP 136/80
[2017-07-07] MEDS: CEFTRIAXONE SOD 1 GM in APPROPRIATE DILUENT 1 EA IV SCH (01:39)
[2017-07-07] MEDS: HEPARIN SOD (PORCINE) 5000 UNITS/ML VIAL SC SCH (05:58)
[2017-07-07] MEDS: PERCOCET 5MG/325MG TAB PO PRN (06:38)
[2017-07-07] MEDS ORDERED: BACT800T5 PO (06:45)
[2017-07-07] MEDS ORDERED: IBUPROFEN 600 MG TAB PO ONE (07:00)
[2017-07-07 07:16] LABS: MEAN CORPUSCULAR HEMOGLOBIN 29.7 pg (27.0-33.0); MEAN CORPUSCULAR HGB CONC 33.6 g/dl (32.0-36.5); MEAN CORPUSCULAR VOLUME 88.5 fl (80.0-96.0); PLATELET COUNT, AUTOMATED 441 10^3/uL (150-450); RED CELL DISTRIBUTION WIDTH 12.6 % (11.5-14.5); WHITE BLOOD COUNT 6.9 10^3/uL (4.0-10.0)
[2017-07-07 07:42] LABS: ALBUMIN 3.1 GM/DL (3.2-5.2); ALBUMIN/GLOBULIN RATIO 0.69 (1.00-1.93); ALKALINE PHOSPHATASE 191 U/L (45-117); ALT/SGPT 73 U/L (12-78); ANION GAP 9 MEQ/L (8-16); AST/SGOT 35 U/L (7-37); BILIRUBIN,TOTAL 0.1 MG/DL (0.2-1.0); BLOOD UREA NITROGEN 10 MG/DL (7-18); CALCIUM LEVEL 8.8 MG/DL (8.5-10.1); CARBON DIOXIDE LEVEL 25 MEQ/L (21-32); CHLORIDE LEVEL 106 MEQ/L (98-107); CREATININE FOR GFR 0.59 MG/DL (0.55-1.02); GLOMERULAR FILTRATION RATE > 60.0 (>58); GLUCOSE, FASTING 90 MG/DL (70-105); POTASSIUM SERUM 3.4 MEQ/L (3.5-5.1); SODIUM LEVEL 140 MEQ/L (136-145); TOTAL PROTEIN 7.6 GM/DL (6.4-8.2)
[2017-07-07 08:00] VITALS: BP 124/77
[2017-07-07] MEDS ORDERED: INFLUENZA QUADRIVALENT PF VACCINE 0.5ML SYRINGE (90686) IM ONE (08:00)
--- NOTE | 2017-07-07 13:31 | DS.PDOC ---
Discharge Summary General Date of Admission Jul 04, 2017 at 00:47 Date of Discharge 07/07/2017 Attending Physician: JUAN COURTNEY DO Specialist/Consultants Involve: STEPHANIA VELASQUEZ MD Specialist/Consultants Involve PCP: to establish with [facility] Discharge Summary CONSULTS: Urology / Dr. Velasquez PROCEDURES: None COMPLICATIONS: None ADMISSION / DISCHARGE DIAGNOSIS: 1. Pyelonephritis with chronic hydronephrosis 2. Abnormal liver function test. With GB polyps no cholelithiasis 3. Anemia. Likely hemodilutional 4. Hypokalemia, resolved 5. Migraine headaches BRIEF HOSPITAL COURSE: 41-year-old female admitted on 07/04/2017 for pyelonephritis and mild chronic hydronephrosis noted on the left. She is status post cystoscopy with left ureteroscopic and laser lithotripsy with basket extraction on 05/30/2017 followed by stent removal on 06/28/2017. She did have some fevers, chills with nausea, no vomiting and flank pain and noted CVA tenderness. Urology consult performed by Dr. Velasquez. He did not feel that there was a need for cystoscopy at this time. The patient did respond favorably on antibiotic therapy. Blood cultures and urine cultures remained negative during her hospital stay. On date of discharge was felt to be back to her baseline voiding fine with no CVA tenderness and afebrile for greater than 24 hours. For further information regarding labs diagnostics intake physical and consultation. Please review the H&P and consult note by Dr. Velasquez. PHYSICAL EXAMINATION ON DISCHARGE: VITAL SIGNS: Please see below. GENERAL: NAD, A&OX3 HEENT: PERRLA, throat clear, neck supple, no JVD CARDIOVASCULAR EXAMINATION: RRR RESPIRATORY EXAMINATION: CTA bilaterally ABDOMINAL EXAMINATION: soft, NT/ND, normoactive bowel sounds EXTREMITIES: no edema no calf tenderness SKIN: intact NEUROLOGICAL EXAMINATION: CN'S II-XII grossly intact PSYCHIATRIC EXAMINATION: stable DISCHARGE MEDICATIONS: See below DISCHARGE CONDITION: Good DISPOSITION: Discharged home DISCHARGE INSTRUCTIONS: Activity: As tolerated Diet: Regular Follow up: [address] Velasquez, 1-2 weeks to establish care with [facility]. Seek medical attention should symptoms worsen or progress. Voiced understanding by patient and/or caregiver. TRANSITION OF CARE ISSUES: Should she continue to have issues with her gallbladder. She may require outpatient referral to general surgery. However, her liver enzymes did normalize and this was most likely related to her acute illness. TIME SPENT ON DISCHARGE: greater than 35 minutes Please CC: Vital Signs/I&Os Vital Signs Date Time Temp Pulse Resp B/P (MAP) Pulse Ox O2 Delivery O2 Flow Rate FiO2 07/07/17 08:00 99.1 67 16 124/77 (93) 97 Room Air I&O- Last 24 Hours up to 6 AM 07/07/17 06:00 Intake Total 3510 ml Output Total 3100 ml Balance 410 ml Laboratory Data Labs 24H Laboratory Tests 2 07/07/17 07:04: Nucleated Red Blood Cells % (auto) 0.0, Anion Gap 9, Glomerular Filtration Rate > 60.0, Blood Urea Nitrogen 10, Creatinine 0.59, Sodium Level 140, Potassium Level 3.4L, Chloride Level 106, Carbon Dioxide Level 25, Calcium Level 8.8, Aspartate Amino Transf (AST/SGOT) 35, Alanine Aminotransferase (ALT/SGPT) 73, Alkaline Phosphatase 191H, Total Bilirubin 0.1L, Total Protein 7.6, Albumin 3.1L , Albumin/Globulin Ratio 0.69L CBC/BMP Laboratory Tests 07/07/17 07:04 Red Blood Count 3.90 L, Mean Corpuscular Volume 88.5, Mean Corpuscular Hemoglobin 29.7, Mean Corpuscular Hemoglobin Concent 33.6, Red Cell Distribution Width 12.6, Calcium Level 8.8, Aspartate Amino Transf (AST/SGOT) 35 , Alanine Aminotransferase (ALT/SGPT) 73, Alkaline Phosphatase 191 H, Total Bilirubin 0.1 L, Total Protein 7.6, Albumin 3.1 L Microbiology Microbiology 07/04/17 Blood Culture - Preliminary, Resulted No Growth after 72 hours. All specime... 07/03/17 Blood Culture - Preliminary, Resulted No Growth after 72 hours. All specime... 07/05/17 Stool Occult Blood ([place]) - Final, Complete 07/03/17 Urine Culture - Final, Complete Discharge Medications Scheduled Ketorolac Tromethamine (Ketorolac Tromethamine) 10 Mg Tab, 10 MG PO Q6H, ( Reported) Trimethoprim/Sulfamethoxazole (Bactrim Ds 800-160 mg) 1 Tab Tab, 1 TAB PO BID Scheduled PRN Acetaminophen (Acetaminophen) 325 Mg Tab, 650 MG PO Q6H PRN for FEVER, (Reported ) Oxycodone/Acetaminophen (Oxycodone/Acetaminophen 5-325 mg) 1 Tab Tab, 1 TAB PO Q6H PRN for PAIN, (Reported) Allergies Coded Allergies: Penicillins (Verified Allergy, Intermediate, lip swelling, 07/03/17) JUAN COURTNEY DO Jul 07, 2017 13:31
== END 2017-07-07 10:06 | disposition home or self-care (01) | DRG 463 ==
LOC: M ED 20:45 → M ED INP 07-04 00:47 → M PED 07-04 01:30
PROVIDERS: ADMIT Hospitalist; ATTEND Internal Medicine
DX: N12 Tubulo-interstitial nephritis, not specified as acute or chronic (principal); N13.30 Unspecified hydronephrosis; Q61.5 Medullary cystic kidney; N20.0 Calculus of kidney; E87.6 Hypokalemia; G43.909 Migraine, unspecified, not intractable, without status migrainosus; Z79.899 Other long term (current) drug therapy; Z88.0 Allergy status to penicillin

== ENCOUNTER → 2017-07-20 | Outpatient (REF) | payer OTHER ==
[2017-07-20 14:21] LABS: CHOLESTEROL LEVEL 192 MG/DL (<200); CHOLESTEROL RISK RATIO 2.285 (<5); HDL CHOLESTEROL 84 MG/DL (>40); LDL CHOLESTEROL 92.6 MG/DL (<100); NON-HDL-C 108 MG/DL; TRIGLYCERIDES LEVEL 77 MG/DL (<150)
== END ==
LOC: M SFHCPLAZ 10:34
DX: R79.89 Other specified abnormal findings of blood chemistry (principal)

== ENCOUNTER → 2017-07-20 | Outpatient (CLI) | payer OTHER | LOC: M LRY 11:58 | DX: R76.11 Nonspecific reaction to tuberculin skin test without active tuberculosis (principal) | CPT/HCPCS: 71046 ==

== ENCOUNTER → 2017-07-22 | Outpatient (CLI) | payer OTHER | LOC: M SMT 13:09 | DX: N13.5 Crossing vessel and stricture of ureter without hydronephrosis (principal) | CPT/HCPCS: 76770 ==